=== PATIENT | female | born 1950 | race Caucasian/White ===

== ENCOUNTER → 2016-09-30 | Outpatient (CLI) | payer MEDICARE, OTHER ==
[2015-06-19 13:30] VITALS: BP 86/53
[~2016-09-30] MED LIST: AMLO1CAP10 PO; CALC-169 PO; FLAX100017 PO; FLAX10003 PO; IOHEXOL 240 MG/ML 50ML VIAL. PO ONE; IOHEXOL 300 MG/ML 100ML VIAL. IV ONE; LANS30CA PO; MULT-114 PO; SERT50TA PO; UBID100T5 PO
--- NOTE | 2016-09-30 11:23 | RAD ---
CT chest abdomen pelvis with IV contrast History: Restaging pancreatic cancer. Comparison: CT chest 07/14/2016. Technique: After administration of oral and intravenous contrast, 75 mL Omnipaque 300, helical CT of the chest, abdomen, and pelvis was performed from the lung apices through the ischial tuberosities. One or more of the following individualized dose reduction techniques were utilized for the study: Automated exposure control Adjustment of mA and/or kV according to patient's size Use of iterative reconstruction technique. Findings: Right chest port and catheter are seen. No mediastinal lymphadenopathy is identified. Heart and pericardium unremarkable. Thoracic aorta is without evidence of dissection. There is interval development of multiple small pulmonary nodules. A few examples include a soft tissue pulmonary nodule in the right costophrenic sulcus measuring 5 mm (series 2 image 54). Periphery of the right lower lobe demonstrates a 5 mm pulmonary nodule (series 2 image 41). Peripheral left lower lobe demonstrates 6 mm pulmonary nodule (series 2 image 42). Many additional new pulmonary nodules are present. There is interval enlargement of left hepatic mass centered at segment IVb. Maximum dimension is now estimated at 5.8 cm (previously reported as 3.3 cm). The left hepatic lobe, segment 2, demonstrates a large low-density mass which measures 5.5 cm maximum dimension (upon retrospective review, this may have measured up to 1.5 cm on previous study). Posterior right hepatic lobe, segment 6, demonstrates 2.0 cm low-attenuation mass, compatible with metastasis (upon retrospective review, on previous study, this measured about 1.1 cm). There is an additional low-density mass involving right hepatic segment 5 (series 4 image 38) which measures 1.2 cm and which is not well-seen on previous study. A few additional smaller low-density masses are seen liver. Splenomegaly is noted with spleen measuring 20 cm in craniocaudal dimension. There is truncation of the pancreatic parenchyma, suggesting distal pancreatectomy. Gallbladder is partially contracted. Bilateral adrenal glands are unremarkable. Bilateral kidneys enhance symmetrically. Left kidney is displaced inferiorly from the splenomegaly. No bowel obstruction or inflammation is identified. Urinary bladder is unremarkable. There is presence of a small amount of ascites within the pelvis as well as in the perihepatic region. No convincing lymphadenopathy is seen in the abdomen or pelvis. Degenerative changes are present in spine. No suspicious osseous lesions are seen. Impression: 1. Interval development of multiple small pulmonary nodules. While this finding is nonspecific, early pulmonary metastatic disease is possible. Additional possibilities include infectious or inflammatory process. Recommend correlation with respiratory symptoms. 2. Interval worsening of hepatic metastatic disease. 3. Small amount of ascites. 4. Splenomegaly.
== END | disposition home or self-care (01) ==
LOC: CT 08:11
PROVIDERS: ATTEND Internal Medicine Hematology & Oncology
DX: C25.9 Malignant neoplasm of pancreas, unspecified (principal); C78.7 Secondary malignant neoplasm of liver and intrahepatic bile duct
CPT/HCPCS: 71260; 74177; Q9966; Q9967